=== PATIENT | female | born 1950 | race Caucasian/White ===

== ENCOUNTER 2016-06-14 06:43 | Day surgery (SDC) | payer MEDICARE, BC ==
[2016-06-14] MEDS ORDERED: Propofol 200 MG/20 ML SDV ONE (07:04)
[2016-06-14] MEDS ORDERED: Lidocaine 2% 5 ML SDV ONE (07:04)
[2016-06-14] MEDS ORDERED: Ondansetron 4 MG/2 ML SDV ONE (07:04)
[2016-06-14] MEDS ORDERED: Midazolam 1 MG/ML 2 ML SDV ONE (07:05)
[2016-06-14] MEDS ORDERED: fentaNYL 250 MCG/5 ML SDV ONE (07:05)
--- NOTE | 2016-06-14 07:10 | PCM.PREANE ---
Preanesthetic Assessment - Anesthesia/Transfusion/Family Hx Anesthesia History: Prior Anesthesia Without Reaction Family History of Anesthesia Reaction: No Transfusion History: No Prior Transfusion(s) - Review of Systems General: No Symptoms Pulmonary: No Symptoms Cardiovascular: No Symptoms Gastrointestinal: No symptoms Neurological: No Symptoms Other: Reports: None - Physical Assessment O2 Sat by Pulse Oximetry: 94 Respiratory Rate: 16 Vital Signs: Last Vital Signs Temp 36.4 C 06/14/16 06:50 Pulse 64 06/14/16 06:50 Resp 16 06/14/16 06:50 BP 154/97 H 06/14/16 06:50 Pulse Ox 94 L 06/14/16 06:50 Height: 1.65 m Weight: 95.708 kg ASA Class: 2 Mental Status: Alert & Oriented x3 Airway Class: Mallampati = 2 Dentition: Reports: Normal Dentition, Austin(s) (multiple crowns up front) Thyro-Mental Finger Breadths: 3 Mouth Opening Finger Breadths: 3 ROM/Head Extension: Full Lungs: Clear to auscultation, Normal respiratory effort Cardiovascular: Regular Rate, Regular Rhythm, No Murmurs - Allergies Allergies/Adverse Reactions: Allergies Allergy/AdvReac Type Severity Reaction Status Date / Time ceftriaxone [From Rocephin] Allergy Hives Verified 06/09/16 13:18 - Blood Blood Available: No - Anesthesia Plan Pre-Op Medication Ordered: None - Acknowledgements Anesthesia Type Planned: General Anesthesia Pt an Appropriate Candidate for the Planned Anesthesia: Yes Alternatives and Risks of Anesthesia Discussed w Pt/Guardian: Yes Pt/Guardian Understands and Agrees with Anesthesia Plan: Yes PreAnesthesia Questionnaire HEENT History: Reports: Other (see below) Other HEENT History: wears glasses, bottom partial Genitourinary History: Reports: Other (see below) (urinary incontinance) 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: Psychiatric History: Reports: Anxiety, Depression Endocrine/Metabolic History: Reports: Obesity/BMI 30+ - Past Surgical History Head Surgeries/Procedures: Reports: None GI Surgical History: Reports: Colonoscopy Female Surgical History: Reports: Breast biopsy, Hysterectomy, Tubal ligation Other Female Surgeries/Procedures: hx breast bx, LAVH, tubal ligation - SUBSTANCE USE Smoking Status *Q: Never Smoker Recreational Drug Use History: No - HOME MEDS Home Medications: Home Meds Estradiol [Estrace 0.01% Vaginal Crm] 1 applic VAG ASDIRECTED 06/09/16 [History] Venlafaxine [Effexor XR] 75 mg PO DAILY 06/09/16 [History] - CURRENT (IN HOUSE) MEDS Current Meds: Current Medications Discontinued Medications Fentanyl (Sublimaze) Confirm Administered Dose 250 mcg .ROUTE .STK-MED ONE Stop: 06/14/16 07:06 Lidocaine (Xylocaine-Mpf 2%) Confirm Administered Dose 5 ml .ROUTE .STK-MED ONE Stop: 06/14/16 07:05 Midazolam HCl (Versed 1 Mg/Ml) Confirm Administered Dose 2 mg .ROUTE .STK-MED ONE Stop: 06/14/16 07:06 Ondansetron HCl (Zofran) Confirm Administered Dose 4 mg .ROUTE .STK-MED ONE Stop: 06/14/16 07:05 Propofol (Diprivan 20 Ml) Confirm Administered Dose 200 mg .ROUTE .STK-MED ONE Stop: 06/14/16 07:05
[2016-06-14] MEDS ORDERED: Bupivacaine 0.25% 10 ML SDV ONE (07:18)
[2016-06-14] MEDS ORDERED: Lidocaine 1% with EPINEPHrine 1:100,000 20 ML MDV ONE (07:18)
[2016-06-14] MEDS ORDERED: Neomycin/Polymyxin B Bladder Irrigation 1 ML Amp ONE (07:19)
[2016-06-14 07:35] LABS: CHLORIDE,CL 111 mmol/L (98-110); SODIUM,NA 142 mmol/L (136-146)
[2016-06-14] MEDS ORDERED: SODIUM CHLORIDE 0.9% IV ONE (08:30)
[2016-06-14] MEDS ORDERED: GENTAMICIN IV ONE (08:30)
[2016-06-14] MEDS ORDERED: Dexamethasone 4 MG/ML 5 ML MDV ONE (08:34)
[2016-06-14] MEDS ORDERED: fentaNYL 100 MCG/2 ML SDV IVPUSH PRN (08:37)
[2016-06-14] MEDS ORDERED: Octyl 2-Cyanoacrylate 1 Tube ONE (08:42)
[2016-06-14] MEDS ORDERED: Phenylephrine/Normal Saline 100 MCG/ML 10 ML Syringe ONE (08:44)
--- NOTE | 2016-06-14 10:05 | PCM.OPNOTE ---
- General Post-Op/Procedure Note Date of Surgery/Procedure: 06/14/16 Operative Procedure(s): anterior and posterior colporrhaphy with tension free vaginal tape Findings: 2nd degree cystocele 3-4 degree rectocele, good vault support, marked urethral hypermobility. Pre Op Diagnosis: vaginal prolapse after hysterectomy, stress urinary incontinence Post-Op Diagnosis: Same Anesthesia Technique: General ET tube Primary Surgeon: Carol Ann Gardner Secondary Surgeon: Asia Chaney Anesthesia Provider: Susan Crawford Pathology: vaginal mucosa Fluid Replacement, Intraop: 2,000 Output, Urine Amount: 220 EBL in mLs: 75 Drain/Tube Comments:: vaginal packing placed, topete catheter placed Complications: None Known Condition: Good
[2016-06-14] MEDS ORDERED: Promethazine 25 MG/ML SDV IM PRN (10:06)
[2016-06-14] MEDS ORDERED: Morphine 2 MG/ML Syringe IVPUSH PRN (10:06)
[2016-06-14] MEDS ORDERED: Ketorolac 30 MG/ML SDV IVPUSH PRN (10:06)
[2016-06-14] MEDS ORDERED: Ondansetron 4 MG/2 ML SDV IVPUSH PRN (10:06)
--- NOTE | 2016-06-14 10:29 | PCM.POSTAN ---
POST ANESTHESIA ASSESSMENT - MENTAL STATUS Mental Status: alert, oriented - RESPIRATORY Respiratory Status: respiratory rate WNL, airway patent, O2 saturation stable - CARDIOVASCULAR CV Status: pulse rate WNL, blood pressure stable - GASTROINTESTINAL GI Status: no symptoms - PAIN Pain Score: 2 - POST OP HYDRATION Hydration Status: adequate & stable - OBSERVATIONS Free Text/Narrative:: no anesthesia problems
[2016-06-14] MEDS: Ketorolac 30 MG/ML SDV IVPUSH ONE ×2 (11:26→12:17)
[2016-06-14] MEDS: Acetaminophen/oxyCODONE 325-5 MG Tab PO PRN ×3 (11:59→20:10)
--- NOTE | 2016-06-14 17:52 | PCM.SURGPN ---
- General Info Date of Service: 06/14/16 POD#: 0 Functional Status: Reports: pain controlled, tolerating diet. Denies: urinating - Review of Systems General: Reports: No Symptoms Pulmonary: Reports: no symptoms Cardiovascular: Reports: No Symptoms Gastrointestinal: Reports: No symptoms Genitourinary: Reports: no symptoms - Patient Data Vitals - most recent: Last Vital Signs Temp 37.2 C 06/14/16 15:58 Pulse 65 06/14/16 15:58 Resp 18 06/14/16 15:58 BP 113/70 06/14/16 15:58 Pulse Ox 94 L 06/14/16 13:53 Weight - most recent: 95.708 kg I&O - last 24 hours: Intake & Output 06/14/16 06/14/16 06/14/16 06:59 14:59 22:59 Intake Total 2370 Output Total 440 1150 Balance 1930 -1150 Lab Results last 24 hrs: Laboratory Results - last 24 hr 06/14/16 06/14/16 06/14/16 Range/Units 07:06 07:06 07:06 WBC 6.67 (4.0-11.0) K/uL RBC 5.19 (4.30-5.90) M/uL Hgb 14.8 (12.0-16.0) g/dL Hct 45.2 (36.0-46.0) % MCV 87.1 (80.0-98.0) fL MCH 28.5 (27.0-32.0) pg MCHC 32.7 (31.0-37.0) g/dL RDW Std Deviation 41.7 (28.0-62.0) fl RDW Coeff of Ryan 13 (11.0-15.0) % Plt Count 218 (150-400) K/uL MPV 10.30 (7.40-12.00) fL Neut % (Auto) 56.7 (48.0-80.0) % Lymph % (Auto) 28.5 (16.0-40.0) % [place] % (Auto) 12.3 (0.0-15.0) % Eos % (Auto) 2.1 (0.0-7.0) % Baso % (Auto) 0.4 (0.0-1.5) % Neut # (Auto) 3.8 (1.4-5.7) K/uL Lymph # (Auto) 1.9 (0.6-2.4) K/uL [place] # (Auto) 0.8 (0.0-0.8) K/uL Eos # (Auto) 0.1 (0.0-0.7) K/uL Baso # (Auto) 0.0 (0.0-0.1) K/uL Nucleated RBC % 0.0 /100WBC Nucleated RBCs # 0 K/uL Sodium 142 (136-146) mmol/L Potassium 4.6 (3.5-5.1) mmol/L Chloride 111 H (98-110) mmol/L Carbon Dioxide 22 (21-31) mmol/L BUN 15 (6.0-23.0) mg/dL Creatinine 0.8 (0.6-1.5) mg/dL Est Cr Clr Drug Dosing 63.09 mL/min Estimated GFR (MDRD) > 60.0 ml/min Glucose 98 (60-110) mg/dL Calcium 8.8 (8.8-10.8) mg/dL Blood Type A POSITIVE Antibody Screen NEGATIVE Med Orders - Current: Current Medications Fentanyl (Sublimaze) 50 mcg IVPUSH .Q5MIN PRN PRN Reason: Pain Stop: 06/18/16 08:38 Ketorolac Tromethamine (Toradol) 30 mg IVPUSH Q6H PRN PRN Reason: Pain (severe 7-10) Stop: 06/19/16 10:06 Morphine Sulfate (Morphine) 2 mg IVPUSH Q2H PRN PRN Reason: Pain (severe 7-10) Ondansetron HCl (Zofran) 4 mg IVPUSH Q6H PRN PRN Reason: Nausea/Vomiting Oxycodone/Acetaminophen (Percocet 325-5 Mg) 1 tab PO Q4H PRN PRN Reason: Pain (moderate 4-6) Last Admin: 06/14/16 16:00 Dose: 1 tab Promethazine HCl (Phenergan) 25 mg IM Q6H PRN PRN Reason: Nausea/Vomiting Discontinued Medications Bupivacaine HCl (Sensorcaine-Mpf 0.25%) Confirm Administered Dose 10 ml .ROUTE .STK-MED ONE Stop: 06/14/16 07:19 Dexamethasone (Dexamethasone) Confirm Administered Dose 20 mg .ROUTE .STK-MED ONE Stop: 06/14/16 08:35 Fentanyl (Sublimaze) Confirm Administered Dose 250 mcg .ROUTE .STK-MED ONE Stop: 06/14/16 07:06 Glycopyrrolate () Confirm Administered Dose 1 mg .ROUTE .STK-MED ONE Stop: 06/14/16 08:26 Gentamicin Sulfate 382 mg/ (Sodium Chloride) 109.55 mls @ 109.55 mls/hr IV ONETIME ONE Stop: 06/14/16 09:29 Last Admin: 06/14/16 07:45 Dose: 109.55 mls/hr Ampicillin Sodium 500 mg/ (Sodium Chloride) 50 mls @ 100 mls/hr IV ONETIME ONE Stop: 06/14/16 08:29 Ampicillin Sodium 500 mg/ (Sodium Chloride) 50 mls @ 100 mls/hr IV ONETIME ONE Stop: 06/14/16 07:59 Last Admin: 06/14/16 11:26 Dose: Not Given Ketorolac Tromethamine (Toradol) 30 mg IVPUSH ONETIME ONE Stop: 06/14/16 10:07 Last Admin: 06/14/16 12:17 Dose: 30 mg Lidocaine (Xylocaine-Mpf 2%) Confirm Administered Dose 5 ml .ROUTE .STK-MED ONE Stop: 06/14/16 07:05 Lidocaine/Epinephrine (Xylocaine 1% With Epinephrine 1:100,000) Confirm Administered Dose 20 ml .ROUTE .STK-MED ONE Stop: 06/14/16 07:19 Midazolam HCl (Versed 1 Mg/Ml) Confirm Administered Dose 2 mg .ROUTE .STK-MED ONE Stop: 06/14/16 07:06 Neomycin/Polymyxin (Neosporin Gu Irrigant) Confirm Administered Dose 1 ml .ROUTE .STK-MED ONE Stop: 06/14/16 07:20 Octyl Cyanoacrylate (Dermabond Advance) Confirm Administered Dose 1 applic .ROUTE .STK-MED ONE Stop: 06/14/16 08:43 Ondansetron HCl (Zofran) Confirm Administered Dose 4 mg .ROUTE .STK-MED ONE Stop: 06/14/16 07:05 Phenylephrine HCl (Phenylephrine In Ns 100 Mcg/Ml) Confirm Administered Dose 1 mg .ROUTE .STK-MED ONE Stop: 06/14/16 08:45 Propofol (Diprivan 20 Ml) Confirm Administered Dose 200 mg .ROUTE .STK-MED ONE Stop: 06/14/16 07:05 - Exam Wound/Incisions: healing well General: alert, oriented Abdomen: soft, no tenderness, no distension Extremities: no edema - Problem List & Annotations (1) Cystocele with rectocele SNOMED Code(s): 610020426 Code(s): N81.10 - CYSTOCELE, UNSPECIFIED; N81.6 - RECTOCELE Status: Acute Current Visit: Yes (2) JUDSON (stress urinary incontinence, female) SNOMED Code(s): 67083357 Code(s): N39.3 - STRESS INCONTINENCE (FEMALE) (MALE) Status: Acute Current Visit: Yes - Problem List Review Problem List Initiated/Reviewed/Updated: Yes - My Orders Last 24 Hours: Active Orders 24 hr Category Date Time Status Patient Status [ADT] Routine ADT 06/14/16 10:06 Active Antiembolic Devices [RC] PER UNIT ROUTINE Care 06/14/16 10:08 Active Notify Provider Intake and Out [RC] ASDIRECTED Care 06/14/16 10:06 Active Notify Provider Vital Signs [RC] ASDIRECTED Care 06/14/16 10:06 Active RT Incentive Spirometry [RC] Q2HWA Care 06/14/16 10:06 Active Up With Assistance [RC] PER UNIT ROUTINE Care 06/14/16 10:06 Active Up ad Marianela [RC] PER UNIT ROUTINE Care 06/14/16 10:06 Active Urinary Catheter Removal [RC] Per Unit Routine Care 06/14/16 10:06 Active Vital Signs [RC] PER UNIT ROUTINE Care 06/14/16 10:06 Active Regular Diet [DIET] Diet 06/14/16 Lunch Active BASIC METABOLIC PANEL,BMP [CHEM] AM Lab 06/15/16 10:15 Ordered CBC WITH AUTO DIFF [HEME] AM Lab 06/15/16 05:11 Ordered Acetaminophen/oxyCODONE [Percocet 325-5 MG] Med 06/14/16 10:06 Active 1 tab PO Q4H PRN Ketorolac [Toradol] Med 06/14/16 10:06 Active 30 mg IVPUSH Q6H PRN Morphine Med 06/14/16 10:06 Active 2 mg IVPUSH Q2H PRN Ondansetron [Zofran] Med 06/14/16 10:06 Active 4 mg IVPUSH Q6H PRN Promethazine [Phenergan] Med 06/14/16 10:06 Active 25 mg IM Q6H PRN fentaNYL [Sublimaze] Med 06/14/16 08:37 Active 50 mcg IVPUSH .Q5MIN PRN Peripheral IV Discontinue [OM.PC] Routine Oth 06/14/16 10:06 Ordered Remove Vaginal Packing [OM.PC] Per Unit Routine Oth 06/15/16 05:00 Ordered Sequential Compression Device [OM.PC] Per Unit Routine Oth 06/14/16 10:06 Ordered Resuscitation Status Routine Resus Stat 06/14/16 10:06 Ordered Medication Orders Fentanyl (Sublimaze) 50 mcg IVPUSH .Q5MIN PRN PRN Reason: Pain Stop: 06/18/16 08:38 Ketorolac Tromethamine (Toradol) 30 mg IVPUSH Q6H PRN PRN Reason: Pain (severe 7-10) Stop: 06/19/16 10:06 Morphine Sulfate (Morphine) 2 mg IVPUSH Q2H PRN PRN Reason: Pain (severe 7-10) Ondansetron HCl (Zofran) 4 mg IVPUSH Q6H PRN PRN Reason: Nausea/Vomiting Oxycodone/Acetaminophen (Percocet 325-5 Mg) 1 tab PO Q4H PRN PRN Reason: Pain (moderate 4-6) Last Admin: 06/14/16 16:00 Dose: 1 tab Admin: 06/14/16 11:59 Dose: 1 tab Promethazine HCl (Phenergan) 25 mg IM Q6H PRN PRN Reason: Nausea/Vomiting - Assessment Assessment (Free Text/Narrative):: POD#0 after anterior and posterior colporrhaphy with TVT. Stable, pain well controlled. - Plan Plan (Free Text/Narrative):: Reviewed operative findings. packing in place, nursing staff may remove at 0500 , with voiding trial at the time of catheter removal. Anticipate discharge in am
--- NOTE | 2016-06-14 18:43 | OR ---
SURGEON: Carol Ann Gardner M.D. DATE OF PROCEDURE: 06/14/2016 PREOPERATIVE DIAGNOSES: Cystocele, rectocele, and stress urinary incontinence. POSTOPERATIVE DIAGNOSES: Cystocele, rectocele, and stress urinary incontinence. PROCEDURES: Anterior-posterior colporrhaphy with tension-free vaginal taping. ASSISTANTS: Asia Chaney M.D. ANESTHESIA: General endotracheal. FLUIDS: Fluids were 2000 mL crystalloid. ESTIMATED BLOOD LOSS: 75 mL. URINE OUTPUT: 220 mL. PATHOLOGY SPECIMEN: Vaginal mucosa. COMPLICATIONS: None known. DISPOSITION: Stable to recovery. BRIEF HISTORY: This is a 66-year-old female. She has a symptomatic cystocele and rectocele. She presents with voiding and fecal dysfunction as well as severe stress incontinence with a component of intrinsic sphincter deficiency noted at the time of cystometry. She on examination has a third-degree cystocele and third- degree rectocele. Good support of the vaginal vault. Urethral hypermobility with intrinsic sphincter deficiency. She would like to proceed with anterior- posterior colporrhaphy with tension-free vaginal taping. Surgical risks discussed including bleeding, infection, injury to bowel, bladder, blood vessels, ureters, other organs, risk of thromboembolic event, risk of recurrence of prolapse of 30% to 40%, risk of new onset stress incontinence, and risk of anesthesia. She also understands that there may be a component of urinary urgency that presents postoperatively. Posterior colporrhaphy risk is an additional risk for injury to bowel or sphincter, risk of dyspareunia related to the TVT risks discussed included that the TVT is a porous mesh, has been 20 years for a suburethral sling as well studied and approved by the FDA. But it is a form of a vaginal mesh and falls into the black box warning, including risk of mesh erosion, infection, and pelvic pain. General surgical risks include urinary retention, voiding dysfunction, bleeding infection, injury to organs such as bowel, bladder, blood vessels, ureter, risk of short-term catheterization of 30%. She understands that the result may be improvement in leakage rather than complete continence due to the severity of her stress incontinence. Understanding all these risks, she does desire to proceed. DESCRIPTION OF PROCEDURE: With the patient in the dorsal lithotomy position, under adequate general analgesia, the perineum, vagina, and abdomen were prepped with Betadine and draped in usual fashion for vaginal surgery. She had received ampicillin and gentamicin preoperatively for prophylactic antibiotics. An appropriate time-out was held. Examination revealed a 2nd to 3rd degree cystocele, 3rd to 4th degree rectocele. Good vault support with urethral hypermobility. The anterior vaginal mucosa was grasped approximately 2 cm cephalad from the urethral meatus. Hydrodissection was performed. An incision was made in the midline using a scalpel. The muscularis layer of the vagina was from the overlying vaginal mucosa and reapproximated in the midline using multiple interrupted mattress sutures of 2-0 Polysorb, reducing the defect. The vaginal mucosa was slightly trimmed and reapproximated using a running locked suture of 2-0 Polysorb. Attention was then turned posteriorly where a triangular incision was made in the perineum. Hydrodissection was performed beneath the vaginal mucosa. The triangular skin on the perineum was excised and the Metzenbaum scissors were used to undermine the vaginal mucosa in the midline and incised to the top of the defect. The muscularis layer was then from the overlying rectus muscle using sharp and blunt dissection. At the very top of the defect, there was the start of an enterocele. Therefore, pursestring suture was placed at the apex of the vagina incorporating the muscularis layer. This was tied and then the remainder of the muscularis layer was reapproximated in the midline using multiple interrupted mattress sutures of 2-0 Polysorb successfully reducing the defect. The vaginal mucosa was further trimmed and closed with a running locked suture of 0-Polysorb up to the level of the perineum where the deep perineal tissue was approximated using a running suture of 2-0 Polysorb and the skin was reapproximated using a subcuticular suture of 3-0 Caprosyn. This being completed, the anterior vaginal mucosa was grasped 1 cm cephalad from the urethral meatus and incised to a length of 0.8 cm. The hydrodissection was performed using a 1:2 solution of Marcaine, 1% lidocaine with epinephrine and saline and a total of 20 mL of this was used for hydrodissection, beneath the vaginal mucosa, extending laterally and then in the retropubic space. The landmarks were identified 1 cm cephalad from the pubic symphysis, 1.5 cm from the midline and marked. Stab incisions were made with 11 blade scalpel in the suprapubic area. Metzenbaum scissors were then used to further dissect beneath the vaginal mucosa toward the pubic ramus. With the patient in a slight Trendelenburg position, the 1st arm of the TVT sling was passed into the defect in the suburethral vaginal mucosa, and aiming toward the ipsilateral shoulder, was passed until the endopelvic fascia was placed. The arm of the handle of the needle was then lowered and following immediately in the retropubic space grazing the pubic ramus to the previously made stab incision. The needle was passed. While this was being performed, the bladder was retracted toward the left. The catheter guide was removed and cystoscopy was performed distending the bladder to 500 mL of sterile water. There was no evidence of any trauma to the bladder mucosa. Therefore, the handle was removed from the needle. The needle was pulled through to the skin. The tape was then cut free from the needle and retained with a Salo clamp. The bladder was emptied, completely retracted toward the left and the process was repeated on the right without any difficulty again on cystoscopy confirming that there was no evidence of any trauma to the bladder mucosa. The bladder was then backfilled with 300 mL of antibiotic solution and the tape was slightly tightened keeping a Metzenbaum scissor between the tape and the urethra. The patient was placed in slight reverse Trendelenburg position. Suprapubic pressure did not reveal any further leakage. I was able to pass an 18-Khmer urethral dilator without any resistance. Therefore, the sheath of the tape was pulled while continuing to hold the Metzenbaum scissors between the urethra and the tape. The tape was trimmed beneath the skin. The suprapubic incisions were closed with skin glue and the vaginal incision was closed with a running locked suture of 3-0 Polysorb. The Deras catheter was replaced. The vagina was packed with vaginal packing instilled with water-based lubricant. Final sponge, needle, and instrument counts were reported as correct. There were no known complications. The patient was transferred to recovery in good condition. BHARGAV REA /[id number]
--- NOTE | 2016-06-14 20:21 | PCM48HPAN ---
Post Anesthesia Note - EVALUATION WITHIN 48HRS OF ANESTHETIC Vital Signs in Normal Range: Yes Patient Participated in Evaluation: Yes Respiratory Function Stable: Yes Airway Patent: Yes Cardiovascular Function Stable: Yes Hydration Status Stable: Yes Pain Control Satisfactory: Yes Nausea and Vomiting Control Satisfactory: Yes Mental Status Recovered: Yes
[2016-06-15] MEDS: Acetaminophen/oxyCODONE 325-5 MG Tab PO PRN (01:06)
[2016-06-15 05:22] LABS: CHLORIDE,CL 109 mmol/L (98-110); SODIUM,NA 141 mmol/L (136-146)
--- NOTE | 2016-06-15 08:08 | PCM.SURGPN ---
- General Info Date of Service: 06/15/16 Date of Surgery/Procedure: 06/15/16 POD#: 1 Post-Op Diagnosis: vaginal prolapse after hysterectomy (cystocele and rectocele) , stress urinary incontinence. Functional Status: Reports: pain controlled, tolerating diet, ambulating, urinating (has voided over 400 ml) - Review of Systems General: Reports: No Symptoms HEENT: Reports: no symptoms Pulmonary: Reports: no symptoms Cardiovascular: Reports: No Symptoms Gastrointestinal: Reports: No symptoms Genitourinary: Reports: no symptoms Musculoskeletal: Reports: no symptoms Skin: Reports: no symptoms Neurological: Reports: No Symptoms Psychiatric: Reports: no symptoms - Patient Data Vitals - most recent: Last Vital Signs Temp 36.6 C 06/15/16 00:45 Pulse 64 06/15/16 00:45 Resp 14 06/15/16 00:45 BP 106/62 06/15/16 00:45 Pulse Ox 94 L 06/15/16 00:45 Weight - most recent: 95.708 kg I&O - last 24 hours: Intake & Output 06/14/16 06/15/16 06/15/16 22:59 06:59 14:59 Output Total 1150 Balance -1150 Lab Results last 24 hrs: Laboratory Results - last 24 hr 06/14/16 06/15/16 06/15/16 Range/Units 07:06 04:38 04:38 WBC 13.56 H (4.0-11.0) K/uL RBC 4.39 (4.30-5.90) M/uL Hgb 12.5 (12.0-16.0) g/dL Hct 38.4 (36.0-46.0) % MCV 87.5 (80.0-98.0) fL MCH 28.5 (27.0-32.0) pg MCHC 32.6 (31.0-37.0) g/dL RDW Std Deviation 41.6 (28.0-62.0) fl RDW Coeff of Ryan 13 (11.0-15.0) % Plt Count 202 (150-400) K/uL MPV 10.10 (7.40-12.00) fL Neut % (Auto) 71.3 (48.0-80.0) % Lymph % (Auto) 17.6 (16.0-40.0) % Motley % (Auto) 10.8 (0.0-15.0) % Eos % (Auto) 0.2 (0.0-7.0) % Baso % (Auto) 0.1 (0.0-1.5) % Neut # (Auto) 9.7 H (1.4-5.7) K/uL Lymph # (Auto) 2.4 (0.6-2.4) K/uL Motley # (Auto) 1.5 H (0.0-0.8) K/uL Eos # (Auto) 0.0 (0.0-0.7) K/uL Baso # (Auto) 0.0 (0.0-0.1) K/uL Nucleated RBC % 0.0 /100WBC Nucleated RBCs # 0 K/uL Sodium 141 (136-146) mmol/L Potassium 4.3 (3.5-5.1) mmol/L Chloride 109 (98-110) mmol/L Carbon Dioxide 26 (21-31) mmol/L BUN 17 (6.0-23.0) mg/dL Creatinine 0.9 (0.6-1.5) mg/dL Est Cr Clr Drug Dosing 56.08 mL/min Estimated GFR (MDRD) > 60.0 ml/min Glucose 105 (60-110) mg/dL Calcium 8.2 L (8.8-10.8) mg/dL Blood Type A POSITIVE Antibody Screen NEGATIVE Med Orders - Current: Current Medications Fentanyl (Sublimaze) 50 mcg IVPUSH .Q5MIN PRN PRN Reason: Pain Stop: 06/18/16 08:38 Ketorolac Tromethamine (Toradol) 30 mg IVPUSH Q6H PRN PRN Reason: Pain (severe 7-10) Stop: 06/19/16 10:06 Last Admin: 06/14/16 20:11 Dose: 30 mg Morphine Sulfate (Morphine) 2 mg IVPUSH Q2H PRN PRN Reason: Pain (severe 7-10) Ondansetron HCl (Zofran) 4 mg IVPUSH Q6H PRN PRN Reason: Nausea/Vomiting Oxycodone/Acetaminophen (Percocet 325-5 Mg) 1 tab PO Q4H PRN PRN Reason: Pain (moderate 4-6) Last Admin: 06/15/16 01:06 Dose: 1 tab Promethazine HCl (Phenergan) 25 mg IM Q6H PRN PRN Reason: Nausea/Vomiting Discontinued Medications Bupivacaine HCl (Sensorcaine-Mpf 0.25%) Confirm Administered Dose 10 ml .ROUTE .STK-MED ONE Stop: 06/14/16 07:19 Dexamethasone (Dexamethasone) Confirm Administered Dose 20 mg .ROUTE .STK-MED ONE Stop: 06/14/16 08:35 Fentanyl (Sublimaze) Confirm Administered Dose 250 mcg .ROUTE .STK-MED ONE Stop: 06/14/16 07:06 Glycopyrrolate () Confirm Administered Dose 1 mg .ROUTE .STK-MED ONE Stop: 06/14/16 08:26 Gentamicin Sulfate 382 mg/ (Sodium Chloride) 109.55 mls @ 109.55 mls/hr IV ONETIME ONE Stop: 06/14/16 09:29 Last Admin: 06/14/16 07:45 Dose: 109.55 mls/hr Ampicillin Sodium 500 mg/ (Sodium Chloride) 50 mls @ 100 mls/hr IV ONETIME ONE Stop: 06/14/16 08:29 Ampicillin Sodium 500 mg/ (Sodium Chloride) 50 mls @ 100 mls/hr IV ONETIME ONE Stop: 06/14/16 07:59 Last Admin: 06/14/16 11:26 Dose: Not Given Ketorolac Tromethamine (Toradol) 30 mg IVPUSH ONETIME ONE Stop: 06/14/16 10:07 Last Admin: 06/14/16 12:17 Dose: 30 mg Lidocaine (Xylocaine-Mpf 2%) Confirm Administered Dose 5 ml .ROUTE .STK-MED ONE Stop: 06/14/16 07:05 Lidocaine/Epinephrine (Xylocaine 1% With Epinephrine 1:100,000) Confirm Administered Dose 20 ml .ROUTE .STK-MED ONE Stop: 06/14/16 07:19 Midazolam HCl (Versed 1 Mg/Ml) Confirm Administered Dose 2 mg .ROUTE .STK-MED ONE Stop: 06/14/16 07:06 Neomycin/Polymyxin (Neosporin Gu Irrigant) Confirm Administered Dose 1 ml .ROUTE .STK-MED ONE Stop: 06/14/16 07:20 Octyl Cyanoacrylate (Dermabond Advance) Confirm Administered Dose 1 applic .ROUTE .STK-MED ONE Stop: 06/14/16 08:43 Ondansetron HCl (Zofran) Confirm Administered Dose 4 mg .ROUTE .STK-MED ONE Stop: 06/14/16 07:05 Phenylephrine HCl (Phenylephrine In Ns 100 Mcg/Ml) Confirm Administered Dose 1 mg .ROUTE .STK-MED ONE Stop: 06/14/16 08:45 Propofol (Diprivan 20 Ml) Confirm Administered Dose 200 mg .ROUTE .STK-MED ONE Stop: 06/14/16 07:05 - Exam Wound/Incisions: healing well General: alert, oriented HEENT: Pupils equal Neck: supple Lungs: Clear to auscultation, Normal respiratory effort Cardiovascular: Regular Rate, Regular Rhythm Abdomen: bowel sounds present, soft, no tenderness, no distension Extremities: no edema Psy/Mental Status: alert, normal affect, normal mood - Problem List & Annotations (1) Cystocele with rectocele SNOMED Code(s): 750354192 Code(s): N81.10 - CYSTOCELE, UNSPECIFIED; N81.6 - RECTOCELE Status: Acute Current Visit: Yes (2) JUDSON (stress urinary incontinence, female) SNOMED Code(s): 78406515 Code(s): N39.3 - STRESS INCONTINENCE (FEMALE) (MALE) Status: Acute Current Visit: Yes - Problem List Review Problem List Initiated/Reviewed/Updated: Yes - My Orders Last 24 Hours: Active Orders 24 hr Category Date Time Status Patient Status [ADT] Routine ADT 06/14/16 10:06 Active Antiembolic Devices [RC] PER UNIT ROUTINE Care 06/14/16 10:08 Active Notify Provider Intake and Out [RC] ASDIRECTED Care 06/14/16 10:06 Active Notify Provider Vital Signs [RC] ASDIRECTED Care 06/14/16 10:06 Active RT Incentive Spirometry [RC] Q2HWA Care 06/14/16 10:06 Active Up With Assistance [RC] PER UNIT ROUTINE Care 06/14/16 10:06 Active Up ad Marianela [RC] PER UNIT ROUTINE Care 06/14/16 10:06 Active Urinary Catheter Removal [RC] Per Unit Routine Care 06/14/16 10:06 Active Vital Signs [RC] PER UNIT ROUTINE Care 06/14/16 10:06 Active Regular Diet [DIET] Diet 06/14/16 Lunch Active Acetaminophen/oxyCODONE [Percocet 325-5 MG] Med 06/14/16 10:06 Active 1 tab PO Q4H PRN Ketorolac [Toradol] Med 06/14/16 10:06 Active 30 mg IVPUSH Q6H PRN Morphine Med 06/14/16 10:06 Active 2 mg IVPUSH Q2H PRN Ondansetron [Zofran] Med 06/14/16 10:06 Active 4 mg IVPUSH Q6H PRN Promethazine [Phenergan] Med 06/14/16 10:06 Active 25 mg IM Q6H PRN fentaNYL [Sublimaze] Med 06/14/16 08:37 Active 50 mcg IVPUSH .Q5MIN PRN Peripheral IV Discontinue [OM.PC] Routine Oth 06/14/16 10:06 Ordered Remove Vaginal Packing [OM.PC] Per Unit Routine Oth 06/15/16 05:00 Ordered Sequential Compression Device [OM.PC] Per Unit Routine Oth 06/14/16 10:06 Ordered Resuscitation Status Routine Resus Stat 06/14/16 10:06 Ordered Medication Orders Fentanyl (Sublimaze) 50 mcg IVPUSH .Q5MIN PRN PRN Reason: Pain Stop: 06/18/16 08:38 Ketorolac Tromethamine (Toradol) 30 mg IVPUSH Q6H PRN PRN Reason: Pain (severe 7-10) Stop: 06/19/16 10:06 Last Admin: 06/14/16 20:11 Dose: 30 mg Morphine Sulfate (Morphine) 2 mg IVPUSH Q2H PRN PRN Reason: Pain (severe 7-10) Ondansetron HCl (Zofran) 4 mg IVPUSH Q6H PRN PRN Reason: Nausea/Vomiting Oxycodone/Acetaminophen (Percocet 325-5 Mg) 1 tab PO Q4H PRN PRN Reason: Pain (moderate 4-6) Last Admin: 06/15/16 01:06 Dose: 1 tab Admin: 06/14/16 20:10 Dose: 1 tab Admin: 06/14/16 16:00 Dose: 1 tab Admin: 06/14/16 11:59 Dose: 1 tab Promethazine HCl (Phenergan) 25 mg IM Q6H PRN PRN Reason: Nausea/Vomiting - Assessment Assessment (Free Text/Narrative):: POD#1 after anterior and posterior colporrhaphy with tension free vaginal tape. Stable tolerating diet, minimal pain, has passed voiding trial. - Plan Plan (Free Text/Narrative):: Dismiss to home today, reviewed discharge instructions.
[2016-06-15 08:17] VITALS: BP 130/68
== END 2016-06-15 10:05 | disposition home or self-care (01) ==
LOC: MW.SDS 06:43 → MW.OB 10:47 → MW.SDS 06-15 10:05
PROVIDERS: ATTEND Obstetrics & Gynecology
DX: N39.3 Stress incontinence (female) (male) (principal); N81.10 Cystocele, unspecified; N81.6 Rectocele; Z88.8 Allergy status to other drugs, medicaments and biological substances; Z79.899 Other long term (current) drug therapy; Z98.890 Other specified postprocedural states; Z98.51 Tubal ligation status
CPT/HCPCS: 36415; 57260; 80048; 85025; 86850; 86900; 86901; 88305; A9270; J1100; J1580; J1885; J2250; J2405; J3010; J7030; 00942; J2704